=== PATIENT | female | born 1945 | race Caucasian/White ===

== ENCOUNTER 2019-02-17 05:27 | Emergency (ER) | payer OTHER, MEDICAID ==
[~2019-02-17] VITALS: Ht 167.6 cm; Wt 103.6 kg
[2019-02-17 06:04] LABS: GLUCOSE,POINT OF CARE 92 MG/DL (70-110)
[2019-02-17] MEDS ORDERED: ARIP15TA2 PO (06:15)
[2019-02-17] MEDS ORDERED: ACETAMINOPHEN 1000 MG/ISO-OSM 100 ML IV ONE (06:15)
[2019-02-17] MEDS ORDERED: DOCU-275 PO (06:15)
[2019-02-17] MEDS ORDERED: LEVO25TA9 PO (06:15)
[2019-02-17] MEDS ORDERED: AZITHROMYCIN 500 MG/NS 250 ML IV ONE (06:15)
[2019-02-17] MEDS ORDERED: ACID1TAB8 PO (06:15)
[2019-02-17] MEDS ORDERED: [UNRECOGNIZED DRUG - CODE] PO (06:15)
[2019-02-17] MEDS ORDERED: POLY238P2 PO (06:15)
[2019-02-17] MEDS ORDERED: MULT9LIQ7 PO (06:15)
[2019-02-17] MEDS ORDERED: CYAN500T65 PO (06:15)
[2019-02-17] MEDS ORDERED: DABI75CA3 PO (06:15)
[2019-02-17] MEDS ORDERED: NITR1PAT63 TD (06:15)
[2019-02-17] MEDS ORDERED: ATOR40TA28 PO (06:15)
[2019-02-17] MEDS ORDERED: TIOT4MIS2 IH (06:15)
[2019-02-17] MEDS ORDERED: BUME1TAB34 PO (06:15)
[2019-02-17] MEDS ORDERED: VENL-68 PO (06:15)
[2019-02-17] MEDS ORDERED: FERR240T6 PO (06:15)
[2019-02-17] MEDS ORDERED: ALBU8HFA IH (06:15)
[2019-02-17] MEDS ORDERED: OXYC20TA58 PO (06:15)
[2019-02-17] MEDS ORDERED: CALC-716 PO (06:15)
[2019-02-17] MEDS ORDERED: SENN-176 PO (06:15)
[2019-02-17] MEDS ORDERED: AMIN30LI28 PO (06:15)
[2019-02-17] MEDS ORDERED: KDUR10 PO (06:15)
[2019-02-17] MEDS ORDERED: SODIUM CHLORIDE 0.9% 1,000 ML IV ONE (06:15)
[2019-02-17] MEDS ORDERED: FAMO20 PO (06:15)
[2019-02-17] MEDS ORDERED: NYST15PO3 TP ×2 (06:15)
[2019-02-17] MEDS ORDERED: SIME80 PO (06:15)
[2019-02-17] MEDS ORDERED: AMLO5TAB9 PO (06:15)
[2019-02-17] MEDS ORDERED: METO-558 PO (06:15)
[2019-02-17] MEDS ORDERED: CefTRIAXone 1 GM/DEXTROSE 50 ML IV ONE (06:15)
[2019-02-17 06:17] LABS: BASOPHILS % (AUTO) 0.2 % (0.0-2.0); EOSINOPHILS % (AUTO) 0 % (1.0-6.0); HEMATOCRIT 29.3 % (36-46); HEMOGLOBIN 9.5 g/dL (12.0-16.0); LYMPHOCYTES # (AUTO) 0.4 K/uL (1.0-4.8); LYMPHOCYTES % (AUTO) 1.9 % (22.0-44.0); MEAN CORPUSCULAR HEMOGLOBIN 25.4 pg (26.0-34.0); MEAN CORPUSCULAR HGB CONC 32.5 G/dL (31.0-37.0); MEAN CORPUSCULAR VOLUME 78 fL (80-100); MONOCYTES # (AUTO) 0.7 K/uL (0.1-1.0); MONOCYTES % (AUTO) 3.4 % (2.0-9.0); NEUTROPHILS # (AUTO) 19.5 K/uL (1.8-7.7); PLATELET COUNT (AUTO) 369 K/uL (150-450); RED BLOOD CELL COUNT(AUTO) 3.76 MIL/uL (4.00-5.20); RED CELL DISTRIBUTION WIDTH 17.6 % (11.5-14.5)
[2019-02-17 06:18] LABS: NEUTROPHILS % (AUTO) 94.5 % (40.0-70.0)
[2019-02-17 06:25] LABS: APPEARANCE,URINE CLOUDY (CLEAR); BILIRUBIN,URINE NEGATIVE (NEGATIVE); GLUCOSE, URINE (UA) NEGATIVE (NEGATIVE); KETONES,URINE TRACE mg/dL (NEGATIVE); LEUKOCYTE ESTERASE ,URINE SMALL (NEGATIVE); NITRATE,URINE NEGATIVE (NEGATIVE); OCCULT BLOOD,URINE MODERATE (NEGATIVE); PH,URINE 5.5 (5.0-8.0); PROTEIN,URINE POS 1+ (NEGATIVE)
[2019-02-17 06:26] LABS: CALCIUM, TOTAL 8.9 mg/dL (8.8-10.5); CREATININE 1.48 mg/dL (0.60-1.30); POTASSIUM 3.1 mmol/L (3.5-5.1)
[2019-02-17 06:31] LABS: AMPHET/METH SCREEN,URINE NEGATIVE (NEGATIVE); BARBITURATE SCREEN, URINE NEGATIVE (NEGATIVE); BENZODIAZEPINES SCREEN,URINE NEGATIVE (NEGATIVE); CANNABINOID SCREEN,URINE NEGATIVE (NEGATIVE); COCAINE SCREEN,URINE NEGATIVE (NEGATIVE); METHADONE SCREEN, URINE NEGATIVE (NEGATIVE); OPIATE SCREEN,URINE NEGATIVE (NEGATIVE); PHENCYCLIDINE SCREEN,URINE NEGATIVE (NEGATIVE)
[2019-02-17 06:31] LABS: INR 1.2 (0.9-1.1); PROTHROMBIN TIME 12.6 SEC (9.4-11.6)
[2019-02-17 06:34] LABS: TROPONIN I 1.59 ng/mL (0.00-0.05)
[2019-02-17 06:50] LABS: BILIRUBIN,TOTAL 1.2 mg/dL (0.1-1.0); TOTAL PROTEIN, SERUM 6.3 g/dL (6.4-8.2)
[2019-02-17 06:52] LABS: BACTERIA,URINE Many /HPF (None Seen); SQUAMOUS EPITHELIAL CELL,UR Few /LPF (None Seen)
[2019-02-17 07:03] LABS: LACTIC ACID 1.7 mmol/L (0.4-2.0)
[2019-02-17 08:26] VITALS: BP 114/64
[2019-02-17] MEDS ORDERED: POTASSIUM CHLORIDE 20 MEQ ER TABLET PO ONE (08:30)
== END 2019-02-17 10:20 | disposition short-term general hospital (02) ==
LOC: EMS 05:27
DX: A41.9 Sepsis, unspecified organism (principal); I10 Essential (primary) hypertension; K21.9 Gastro-esophageal reflux disease without esophagitis; I48.91 Unspecified atrial fibrillation; Z88.0 Allergy status to penicillin; Z88.8 Allergy status to other drugs, medicaments and biological substances; Z79.899 Other long term (current) drug therapy
CPT/HCPCS: 36415; 70450; 71045; 80053; 80307; 81001; 82140; 82550; 82962; 83605; 83880; 84484; 85025; 85610; 85730; 87040; 87077; 87086; 87186; 87205; 93005; 96365; 96367; 99291; J0131; J0456; J0696; J7030; 51702